=== PATIENT | male | born 1990 | race African-American/Black ===

== ENCOUNTER 2016-09-12 12:56 | Emergency (ER) | payer OTHER ==
[2016-09-12 13:00] VITALS: BP 146/75; PULSE 79; RESP 16; TEMP 97.7
--- NOTE | 2016-09-12 13:09 | ED ---
General Adult HPI - General Chief complaint: Extremity Injury, Upper Stated complaint: Wrist Pain Time Seen by Provider: 09/12/16 13:04 Source: patient Mode of arrival: ambulatory Limitations: no limitations - History of Present Illness Initial comments: 26-year-old male patient presents to emergency department today for complaints of right wrist pain. Patient states that 3 days ago he was playing basketball he tripped and fell landing on his right hand. Patient states that his wrist has been hurting since, especially with flexion, pronation, and supination. Patient denies hitting his head or losing consciousness. Patient denies any other injuries. He denies any previous injury to the wrist. Patient has been taking ibuprofen for pain which has been effective for his pain. - Related Data Allergies Allergy/AdvReac Type Severity Reaction Status Date / Time No Known Allergies Allergy Verified 09/12/16 13:00 Review of Systems ROS Statement: Those systems with pertinent positive or pertinent negative responses have been documented in the HPI. ROS Other: All systems not noted in ROS Statement are negative. Past Medical History Past Medical History: No Reported History History of Any Multi-Drug Resistant Organisms: None Reported Past Surgical History: No Surgical Hx Reported Past Psychological History: No Psychological Hx Reported Smoking Status: Current every day smoker Past Alcohol Use History: Occasional Past Drug Use History: None Reported General Exam Limitations: no limitations General appearance: alert, in no apparent distress Head exam: Present: atraumatic, normocephalic, normal inspection Eye exam: Present: normal appearance, PERRL, EOMI. Absent: scleral icterus, conjunctival injection, periorbital swelling Neck exam: Present: normal inspection, full ROM. Absent: tenderness, meningismus, lymphadenopathy Respiratory exam: Present: normal lung sounds bilaterally. Absent: respiratory distress, wheezes, rales, rhonchi, stridor Cardiovascular Exam: Present: regular rate, normal rhythm, normal heart sounds. Absent: systolic murmur, diastolic murmur, rubs, gallop, clicks Extremities exam: Present: normal inspection, full ROM, tenderness (Right wrist tenderness, right medial aspect), normal capillary refill. Absent: pedal edema , joint swelling, calf tenderness Back exam: Present: normal inspection Neurological exam: Present: alert, oriented X3, CN II-XII intact Psychiatric exam: Present: normal affect, normal mood Skin exam: Present: warm, dry, intact, normal color. Absent: rash Course Vital Signs 09/12/16 12:57 Temperature 97.7 F Pulse Rate 79 Respiratory 16 Rate Blood Pressure 146/75 O2 Sat by Pulse 97 Oximetry Medical Decision Making - Medical Decision Making I will not patient presented to emergency department today for complaints of right wrist pain. 4 view x-ray obtained and shows no acute osseous abnormalities. Patient will be placed in an Eric wrap. Given instructions for follow-up with orthopedics in 7-10 days if his symptoms aren't improved. Also instructed to follow-up for recheck with his primary care physician in one to 2 days. Patient instructed to return for any new, worsening, or concerning symptoms. Patient verbalized understanding and agreed to this plan. - Radiology Data Radiology results: report reviewed, image reviewed 4 view x-ray of the right wrist reveals preserved joint spaces. No acute displaced fractures are evident. The soft tissues are normal. Impression by Dr. Persaud reveals a normal 4 view right wrist. Disposition Clinical Impression: Right wrist sprain Disposition: HOME SELF-CARE Condition: Good Instructions: Wrist Injury (ED), Wrist Sprain (ED) Additional Instructions: Rest, ice, and elevate wrist. Use Eric wrap for comfort. Follow up with primary care physician one to 2 days for recheck. Follow up with orthopedics if symptoms aren't improving over the next 7-10 days. Referrals: None,Stated [Primary Care Provider] - 1-2 days Liam Vega MD [STAFF PHYSICIAN] - 1-2 days Time of Disposition: 13:47
--- NOTE | 2016-09-12 13:43 | XR ---
EXAMINATION TYPE: XR wrist complete RT DATE OF EXAM: 09/12/2016 COMPARISON: NONE HISTORY: Pain medial aspect TECHNIQUE: 4 view right wrist FINDINGS: Joint spaces are preserved. No acute displaced fractures are evident. The soft tissues are normal. Follow-up study can be performed 7-10 days from acute trauma for continued pain. If there is pain at the anatomic snuff box, nuclear medicine bone scan can be performed for additional evaluation. IMPRESSION: 1. Normal 4 view right wrist
== END 2016-09-12 13:55 | disposition home or self-care (01) ==
LOC: EC 12:56
DX: S63.501A Unspecified sprain of right wrist, initial encounter (principal); F17.200 Nicotine dependence, unspecified, uncomplicated; W18.09XA Striking against other object with subsequent fall, initial encounter; Y93.67 Activity, basketball
CPT/HCPCS: 99283

== ENCOUNTER 2019-03-07 09:12 | Emergency (ER) | payer OTHER ==
[2019-03-07 09:31] VITALS: TEMP 97.9
[2019-03-07] MEDS ORDERED: KETOROLAC 30 MG/ML 1 ML VIAL IM STA (10:23)
--- NOTE | 2019-03-07 10:35 | ED ---
General Adult HPI - General Chief complaint: Extremity Injury, Lower Stated complaint: left foot pain Time Seen by Provider: 03/07/19 10:05 Source: patient, RN notes reviewed Mode of arrival: ambulatory Limitations: no limitations - History of Present Illness Initial comments: 28 year old male patient presents to the emergency department for left foot p ain. Patient states he woke up with this pain yesterday morning. States when he sleeps he moves around a lot and he thinks he kicked his dresser. States it has been painful to walk on. States it is the bottom of his foot that hurts the most. States Motrin helps but if he does not take it any is difficulty ambulating on the left foot. Denies any other injuries. He does admit that the pain shoots up to his left calf as well. Patient has no other complaints at this time including shortness of breath, chest pain, abdominal pain, nausea or vomiting, headache, or visual changes. - Related Data Home Medications Medication Instructions Recorded Confirmed Ergocalciferol [Vitamin D2] 50,000 unit PO JOSE 03/07/19 03/07/19 Ibuprofen [Motrin Ib] 400 mg PO Q6H PRN 03/07/19 03/07/19 Allergies Allergy/AdvReac Type Severity Reaction Status Date / Time No Known Allergies Allergy Verified 03/07/19 11:26 Review of Systems ROS Statement: Those systems with pertinent positive or pertinent negative responses have been documented in the HPI. ROS Other: All systems not noted in ROS Statement are negative. Past Medical History Past Medical History: No Reported History History of Any Multi-Drug Resistant Organisms: None Reported Past Surgical History: Adenoidectomy, Tonsillectomy Past Psychological History: No Psychological Hx Reported Smoking Status: Current every day smoker Past Alcohol Use History: None Reported Past Drug Use History: Marijuana General Exam Limitations: no limitations General appearance: alert, in no apparent distress Head exam: Present: atraumatic, normocephalic, normal inspection Eye exam: Present: normal appearance, PERRL, EOMI. Absent: scleral icterus, conjunctival injection, periorbital swelling ENT exam: Present: normal exam, mucous membranes moist Neck exam: Present: normal inspection, full ROM. Absent: tenderness, meningismus, lymphadenopathy Respiratory exam: Present: normal lung sounds bilaterally. Absent: respiratory distress, wheezes, rales, rhonchi, stridor Cardiovascular Exam: Present: regular rate, normal rhythm, normal heart sounds. Absent: systolic murmur, diastolic murmur, rubs, gallop, clicks Extremities exam: Present: full ROM (full ROM of the ankle and foot as well as digits of the LLE), tenderness (generalized plantar foot tenderness worse near calcaneus), normal capillary refill (cap refill < 2 seconds, Dp pulse 2+), calf tenderness (minimal L calf tenderness). Absent: pedal edema, joint swelling Neurological exam: Present: alert Course Vital Signs 03/07/19 09:29 Temperature 97.9 F Pulse Rate 83 Respiratory 18 Rate Blood Pressure 112/75 O2 Sat by Pulse 97 Oximetry Medical Decision Making - Medical Decision Making X-ray shows no acute fracture or dislocation. Ultrasound demonstrates no acute evidence for DVT. Patient may have a component of plantar fasciitis. I discussed Motrin and Tylenol for pain. Discussed following up with orthopedics and return if he has any worsening symptoms. Patient was also evaluated by Dr. Rivera Disposition Clinical Impression: Foot pain, left Disposition: HOME SELF-CARE Condition: Good Instructions (If sedation given, give patient instructions): Plantar Fasciitis (ED), Foot Sprain (ED) Additional Instructions: Please take Motrin and Tylenol for pain. Follow-up with orthopedics in one to 2 days. Return here to the emergency department if you have any worsening symptoms. Is patient prescribed a controlled substance at d/c from ED?: No Referrals: Alfred Gardner MD [STAFF PHYSICIAN] - 1-2 days Time of Disposition: 12:12
--- NOTE | 2019-03-07 10:54 | XR ---
EXAMINATION TYPE: XR foot complete LT DATE OF EXAM: 03/07/2019 CLINICAL HISTORY: Lateral pain TECHNIQUE: Frontal, lateral, and oblique images of the left foot are obtained. COMPARISON: None FINDINGS: There is no acute fracture/dislocation evident in the left foot. The joint spaces in the left foot appear within normal limits. The overlying soft tissue appears unremarkable. IMPRESSION: There is no acute fracture or dislocation in the left foot.
--- NOTE | 2019-03-07 11:31 | US ---
EXAMINATION TYPE: US venous doppler duplex LE LT DATE OF EXAM: 03/07/2019 10:23 AM COMPARISON: NONE CLINICAL HISTORY: calf pain. SIDE PERFORMED: Left TECHNIQUE: The lower extremity deep venous system is examined utilizing real time linear array sonog nuris with graded compression, doppler sonography and color-flow sonography. VESSELS IMAGED: External Iliac Vein (EIV) Common Femoral Vein Deep Femoral Vein Greater Saphenous Vein * Femoral Vein Popliteal Vein Proximal Calf Veins (* superficial vessels) Left Leg: Negative for DVT Grayscale, color doppler, spectral doppler imaging performed of the deep veins of the left lower extr emity. There is normal flow, compressibility, vascular waveforms. IMPRESSION: No ultrasound evidence for acute DVT in the left lower extremity.
[2019-03-07 12:21] VITALS: RESP 20
[2019-03-07 12:22] VITALS: BP 115/80; PULSE 80
== END 2019-03-07 12:23 | disposition home or self-care (01) ==
LOC: EC 09:12
DX: M79.672 Pain in left foot (principal); F17.200 Nicotine dependence, unspecified, uncomplicated
CPT/HCPCS: 73630; 93971; 99284; 96372; J1885

== ENCOUNTER 2019-08-02 15:52 | Emergency (ER) | payer OTHER ==
[2019-08-02 16:09] VITALS: BP 139/76; PULSE 94; RESP 18; TEMP 98.5
[2019-08-02] MEDS ORDERED: KETOROLAC 60 MG/2 ML VIAL IM STA (16:37)
--- NOTE | 2019-08-02 16:50 | ED ---
Chest Pain HPI - General Chief Complaint: Chest Pain Stated Complaint: chest/back pain Time Seen by Provider: 08/02/19 16:09 Source: patient Mode of arrival: ambulatory Limitations: no limitations - History of Present Illness Initial Comments: Patient is a 29-year-old male presenting to the emergency Department with complaints of chest discomfort that started last night. 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 Patient states the pain increases when he moves his arm or stretches out his ch est. He also admits to increased pain when he takes a deep breath and and when he lets out a cough. He denies history of heart disease. He denies any shortness of breath, nausea, vomiting. He denies any recent fever or chills. Patient denies history of heart disease, he takes no medications. He has no further complaints at this time. Upon arrival to the ER, his vitals are stable. - Related Data Home Medications Medication Instructions Recorded Confirmed Ergocalciferol [Vitamin D2] 50,000 unit PO JOSE 03/07/19 03/07/19 Ibuprofen [Motrin Ib] 400 mg PO Q6H PRN 03/07/19 03/07/19 Previous Rx's Medication Instructions Recorded Ketorolac [Toradol] 10 mg PO Q8HR #10 tab 08/02/19 Allergies Allergy/AdvReac Type Severity Reaction Status Date / Time No Known Allergies Allergy Verified 08/02/19 16:06 Review of Systems ROS Statement: Those systems with pertinent positive or pertinent negative responses have been documented in the HPI. ROS Other: All systems not noted in ROS Statement are negative. EKG Findings - EKG Comments: EKG Findings:: EKG shows normal sinus rhythm, normal ECG, no signs of ischemia. Ventricular rate 75, LA interval 150, QT 380. Past Medical History Past Medical History: No Reported History History of Any Multi-Drug Resistant Organisms: None Reported Past Surgical History: Adenoidectomy, Tonsillectomy Past Psychological History: No Psychological Hx Reported Smoking Status: Current every day smoker Past Alcohol Use History: None Reported Past Drug Use History: Marijuana General Exam - General Exam Comments Initial Comments: GENERAL: Well-appearing, well-nourished and in no acute distress. HEAD: Atraumatic, normocephalic. EYES: Pupils equal round and reactive to light, extraocular movements intact, sclera anicteric, conjunctiva are normal. ENT: TMs normal, nares patent, oropharynx clear without exudates. Moist mucous membranes. NECK: Normal range of motion, supple without lymphadenopathy or JVD. LUNGS: Breath sounds clear to auscultation bilaterally and equal. No wheezes rales or rhonchi. HEART: Regular rate and rhythm without murmurs, rubs or gallops. Pain with palpation of the proximal sternum, right and left anterior chest wall. Increased pain with chest retraction and arm movement. ABDOMEN: Soft, nontender, normoactive bowel sounds. No guarding, no rebound. No masses appreciated. : Deferred EXTREMITIES: Normal range of motion, no pitting or edema. No clubbing or cyanosis. NEUROLOGICAL: Normal speech, normal gait. PSYCH: Normal mood, normal affect. SKIN: Warm, Dry, normal turgor, no rashes or lesions noted. Limitations: no limitations Course Vital Signs 08/02/19 16:06 Temperature 98.5 F Pulse Rate 94 Respiratory 18 Rate Blood Pressure 139/76 O2 Sat by Pulse 97 Oximetry Chest [facility] Patient is a 21-year-old male presenting with anterior chest discomfort since last night. 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 Patient's EKG is unremarkable, no acute changes. On exam patient has tenderness of the sternum, right and left anterior chest wall, i ncreased pain with arm movement and retraction of the shoulders. I discussed with patient this is most likely related to costochondritis, overuse. I recommended anti-inflammatories as well as heat and/or ice to the area. Patient is given Toradol the ER. He is stable for discharge. He is in agreement with this plan of care. Return parameters were discussed with the patient he verbalizes understanding. Case discussed with Dr. Hart. Disposition Clinical Impression: Costochondritis Disposition: HOME SELF-CARE Condition: Stable Instructions (If sedation given, give patient instructions): Costochondritis (ED) Additional Instructions: Please return to the Emergency Department if symptoms worsen or any other concerns. Continue with anti-inflammatories such as Motrin or Aleve for discomfort. May use heat and/or ice to the area. Limit overhead or extended arm activity for a few days. Follow-up with PCP. Prescriptions: Ketorolac [Toradol] 10 mg PO Q8HR #10 tab Is patient prescribed a controlled substance at d/c from ED?: No Referrals: None,Stated [Primary Care Provider] - 1-2 days
== END 2019-08-02 17:12 | disposition home or self-care (01) ==
LOC: EC 15:52
DX: M94.0 Chondrocostal junction syndrome [Tietze] (principal); F17.200 Nicotine dependence, unspecified, uncomplicated
CPT/HCPCS: 93005; 99284; 96372; J1885